=== PATIENT | female | born 2000 | race Caucasian/White ===

== ENCOUNTER 2019-01-24 19:03 | Emergency (ER) | payer OTHER ==
[~2019-01-24] VITALS: Ht 160 cm; Wt 90.7 kg
[2019-01-24 19:16] VITALS: BP 160/96
[2019-01-24] MEDS ORDERED: NS 1000ML 1,000 ML STA (19:25)
--- NOTE | 2019-01-24 19:28 | ER.PDOC ---
General Chief Complaint: Palpitations Stated Complaint: NAUSEA,ELEVATED HEART RATE Time seen by MD: 19:16 Source: patient Exam Limitations: no limitations History of Present Illness Initial Comments 18 YO FEMALE PRESENTS WITH RAPID HEART BEAT AND FEELING ANXIOUS X 1 HR PRIOR TO ARRIVAL.. SHE DENIES CHEST PAIN. SHE FEELS SHORT OF BREATH , NAUSEATED. NO ABD OMINAL PAIN, COUGH, FEVER OR CHILLS. SHE DRINKS LOTS OF TEA. SHE HAD SIMILAR EPISODE A MONTH AGO AND HIS PRIMARY CARE PROVIDER TOLD HER SHE HAS ANXIETY AND PRESCRIBED ZOLOFT FOR THE PATIENT- PATIENT DID NO START IT. NO FAMILY HISTORY OF DYSRYTHMIA OR CARDIAC DISORDER. Timing/Duration: 1 hour Quality: fast, pounding heart beat Activities at Onset: none History of: caffeine Modifying Factors: antacids Associated Symptoms: nausea/vomiting, anxiety Prior symptoms/Treatment: Similar symptoms previous Allergies: Coded Allergies: No Known Allergies (Unverified , 04/28/16) Home Meds No Active Prescriptions or Reported Meds Past Medical History Medical History: other (ANXIETY) Surgical History: other (dental surgery) LMP (females 10-50): 3 weeks Family History Significant Family History: no pertinent family hx Social History Smoking: non-smoker Alcohol Use: none Drug Use: none Reviewed Nursing Reviewed: Vital Signs, Abn. Noted, Nursing Assessment Constitutional: denies chills, denies fever EENTM: denies double vision Respiratory: denies cough, denies orthopnea; shortness of breath Cardiovascular: denies chest pain Gastrointestinal: denies abdomen distended, denies abdominal pain Genitourinary: denies dysuria Musculoskeletal: see HPI Skin: see HPI Psychiatric/Neurological: anxiety; denies headache Endocrine: denies excessive sweating Hematologic/Lymphatic: denies anemia Physical Exam General Appearance: Anxious, Mild Distress, Obese HEENT: PERRL/EOMI, Normal ENT Inspection, Pharynx Normal Neck: Non-Tender, Full Range of Motion, Supple, Normal Inspection Respiratory: chest non-tender, lungs clear, normal breath sounds, no respiratory distress Cardiovascular: Normal Peripheral Pulses, No JVD, Tachycardia (REGULAR) Gastrointestinal: Normal Bowel Sounds Extremities: Normal Range of Motion, Non-Tender Neurologic/Psychiatric: Alert, Oriented x 3 Skin: Normal Color Results/Orders Results/Orders Vital Signs Date Time Temp Pulse Resp B/P (MAP) Pulse Ox O2 Delivery O2 Flow Rate FiO2 01/24/19 19:16 98.1 122 18 97 Room Air 01/24/19 19:16 98.1 122 18 160/96 (117) 97 Room Air 01/24/19 19:16 98.1 122 18 Progress Progress URINALYSIS, CARDIAC ENZYME, D-DIMER, CXR, CHEM UNREMARKABLE. ELEVATED HEMOGLOBIN AND WBC LIKELY HEMOCONCENTRATION. EKG WITH SINUS TACHY, NON SPECIFIC T WAVE ABNORMALITY. TSH WITHIN NORMAL RANGE. PATIENT TO FOLLOW UP WITH CARDIOLOGY FOR HOLTER MONITOR/ FURTHER EVALUATION. PATIENT APPEARS ANXIOUS. EKG/XRAY/CT/US EKG: NSR (SINUS TACHYCARDIA 127B/MIN. NON SPECIFIC T WAVE CHANGE.) XRAY: chest XRAY Comments: No acute cardiopulmonary changes. Departure Time of Disposition: 21:44 Disposition: 01 HOME, SELF-CARE Impression: Primary Impression: Palpitations Additional Impressions: Tachycardia Anxiety Condition: Stable Referrals: PCP,UNKNOWN (PCP) PRIMARY CARE PROVIDER THEODORA HOANG MD SPECIALIST CALL FOR APPOINT TOMORROW FOR FURTHER EVALUATION TOMORROW Additional Instructions: DRINK PLENTY OF FLUID TO KEEP YOU HYDRATED RETURN TO THE ER IF YOUR CONDITION WORSEN Scripts No Active Prescriptions or Reported Meds Comments ATIVAN Duration or Time Spent with Pa: 60 MIN Problem Qualifiers BOLIVAR OSMAN MD Jan 24, 2019 19:28
[2019-01-24 19:37] LABS: BASOPHIL # 0.1 10^3/uL (0.0-0.1); BASOPHIL % 0.9 % (0.0-0.2); EOSINOPHIL # 0.2 10^3/uL (0.0-0.2); EOSINOPHIL % 1.5 % (0.0-5.0); HEMOGLOBIN 15.8 g/dL (12.4-14.8); LYMPHOCYTES # 4.6 10^3/uL (1.2-5.2); LYMPHOCYTES % 35.8 % (24.0-44.0); MEAN CELL HGB 29.6 pg (26-34); MEAN CELL HGB CONCENTRATION 35.2 g/dL (33-37); MEAN CORP VOLUME 84.1 fL (78-100); MEAN PLATELET VOLUME 10.4 fL (7.8-11.0); MONOCYTES # 1.4 10^3/uL (0.0-0.4); MONOCYTES % 10.6 % (5.0-12.0); NEUTROPHIL # 6.5 10^3/uL (1.8-8.0); NEUTROPHILS % 50.7 % (41.0-85.0); RED CELL DISTRIBUTION WIDTH 12.3 % (11.5-14.5); WHITE BLOOD CELL 12.8 10^3/uL (4.5-12.5)
--- NOTE | 2019-01-24 19:40 | DIREP ---
PROCEDURE:CHEST 1 VIEW COMPARISON:None. INDICATIONS:palpitation FINDINGS: LUNGS/PLEURA:Lungs are clear of focal consolidation. No evidence of pleural effusion. VASCULATURE:Unremarkable pulmonary vasculature. CARDIAC:No cardiac silhouette abnormality or cardiomegaly. AMY/MEDIASTINUM:No visible mass or adenopathy. BONES:No acute fracture. OTHER:No additional findings. CONCLUSION: 1. No acute cardiopulmonary changes. Dictated by: Iván Kerns M.D. on 01/24/2019 at 07:38 PM
[2019-01-24] MEDS ORDERED: NS 1000ML 1,000 ML ONE (19:43)
[2019-01-24 19:58] LABS: ALANINE AMINOTRANSFERASE(ML) 28 U/L (12-78); ALKALINE PHOSPHATASE 79 U/L (50-136); ASPARTATE AMINO TRANSFERASE 14 U/L (0-35); CALCIUM 9.7 mg/dL (8.4-10.5); CARBON DIOXIDE 24.6 mmol/L (20.0-32); GLUCOSE 119 mg/dL (70-110)
[2019-01-24 19:59] LABS: BILIRUBIN,URINE NEGATIVE (NEGATIVE); UROBILINOGEN,URINE NORMAL (NEGATIVE)
[2019-01-24 20:06] LABS: APPEARANCE,URINE CLEAR (CLEAR); UA COLOR YELLOW (YELLOW)
[2019-01-24 20:15] VITALS: BP 121/75
[2019-01-24] MEDS ORDERED: ATIVAN ONE (21:00)
[2019-01-24] MEDS ORDERED: ATIVAN IV STA (21:00)
[2019-01-24 21:15] VITALS: BP 113/71
--- NOTE | 2019-01-24 21:51 | PCM.EKG ---
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
--- NOTE | 2019-01-24 21:54 | NUR ---
HEART RATE HEART RATE FLUCTUATING BETWEEN 116-128, EDP NOTIFIED. STATES TO DISCHARGE DUE TO ASYMPTOMATIC
[2019-01-24 21:59] VITALS: BP 124/76
--- NOTE | 2019-01-24 22:07 | NUR ---
PATIENT DISCHARGED EDP STATES HE KNOWS PATIENT HAS BEEN DISCHARGED BUT WOULD LAB CALLED TO RUN TSH.
== END 2019-01-24 21:59 | disposition home or self-care (01) ==
LOC: ER 19:03
DX: F41.9 Anxiety disorder, unspecified (principal); R11.2 Nausea with vomiting, unspecified
CPT/HCPCS: 36415; 71045; 80053; 81002; 81025; 84443; 84484; 85025; 85379; 93005; 96361; 96374; 99285; J2060; J7030